=== PATIENT | male | born 1995 | race Caucasian/White ===

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

== ENCOUNTER 2019-01-25 12:52 | Emergency (ER) | payer OTHER ==
[2019-01-25 13:01] VITALS: BP 128/72
--- NOTE | 2019-01-25 13:09 | UC ---
Ear Complaint HPI - HPI Summary HPI Summary: Patient is a 23 year old gentleman , who presents today to the urgent care with left ear pain for past 3 days , injured on Saturday. He he reports that he was snorkeling in [place] and also was diving. He was around 25-30 feet level underwater. He has done this previously as wel without any problems. When he came out he heard a pop with blood mixed with water noted on his hands. He reports slightly muffled hearing. there is associated left ear discharge that he notices. Denies any fever, chills, cough chest pain or shortness of breath . Denies any abdominal pain , nausea or vomiting , diarrhea or constipation. - History of Current Complaint Chief Complaint: UCEar Stated Complaint: LEFT EAR PAIN Time Seen by Provider: 01/25/19 13:07 Hx Obtained From: Patient Pain Intensity: 4 - Allergies/Home Medications Allergies/Adverse Reactions: Allergies Allergy/AdvReac Type Severity Reaction Status Date / Time shell fish Allergy Shortness Uncoded 01/25/19 13:02 of Breath PMH/Surg Hx/FS Hx/Imm Hx - Additional Past Medical History Additional PMH: asthma, has not used inhaler for many years Previously Healthy: Yes - Surgical History Surgical History: Yes Surgery Procedure, Year, and Place: tubes in ears/T&A - Family History Known Family History: Positive: Hypertension, Diabetes, Other - HLD Negative: Cardiac Disease - Social History Alcohol Use: None Substance Use Type: None Smoking Status (MU): Former Smoker Type: Smokeless Tobacco Amount Used/How Often: 1 can per day Length of Time of Smoking/Using Tobacco: started at age 13 Have You Smoked in the Last Year: Yes When Did the Patient Quit Smoking/Using Tobacco: quit smoking cigg at age 18 - Immunization History Vaccination Up to Date: Yes Review of Systems All Other Systems Reviewed And Are Negative: Yes Constitutional: Positive: Negative Skin: Positive: Negative Eyes: Positive: Negative ENT: Positive: Ear Ache, Other - left-sided ear discharge, decreased hearing on left side Respiratory: Positive: Negative Cardiovascular: Positive: Negative Gastrointestinal: Positive: Negative Genitourinary: Positive: Negative Motor: Positive: Negative Neurovascular: Positive: Negative Musculoskeletal: Positive: Negative Neurological: Positive: Negative Psychological: Positive: Negative Is Patient Immunocompromised?: No Physical Exam - Summary Physical Exam Summary: Physical Exam: Const: Appears well. No signs of apparent distress present. Alert and oriented x 3. Musculo: Walks with a normal gait. Head/Face: Atraumatic, normocephalic on inspection. Eyes: EOMI and PERRLA in both eyes. Conjunctivae clear. No discharge noted ENT: Hearing normal, TM normal appearingon right side. There is a small defect at 9 o'clock positio noted on the tympanic membrane on the left side. There is slight amount of discharge noted. no pharyngeal erythema or exudates. No lymphadenopathy Respiratory: Respirations are unlabored. Lungs clear to auscultation bilaterally, no wheezing , rhonchi or rales noted . CVS: Regular rate and Rhythm, S1S2 normal , no murmurs identified. Extremities: Peripheral circulation is grossly normal. Pulses 2+ Abdomen : Soft non tender , nondistended , Bowel sounds present . No guarding , rebound tenderness or rigidity noted. Skin: No lesions or rash located on the upper extremities or on the lower extremities. Neuro: Cranial nerves II to XII intact, motor and sensory intact. DTR Intact bilaterally. Mood is normal. Affect is normal. Triage Information Reviewed: Yes Vital Signs: Initial Vital Signs Temp 98.5 F 01/25/19 12:53 Pulse 87 01/25/19 12:53 Resp 16 01/25/19 12:53 BP 128/72 01/25/19 12:53 Pulse Ox 100 01/25/19 12:53 Vital Signs Reviewed: Yes Ear Complaint Course/Dx - Course Course Of Treatment: During the visit today, we discussed the findings and further plan to cover with antibiotics and follow up with ENT for definitive management. I will prescribe the medication to the pharmacy . Patient expressed understanding . - Differential Dx/Diagnosis Provider Diagnosis: Barotrauma due to diving, Ruptured tympanic membrane, Otitis media Discharge - Sign-Out/Discharge Documenting (check all that apply): Patient Departure All imaging exams completed and their final reports reviewed: No Studies - Discharge Plan Condition: Stable Disposition: HOME Prescriptions: Ofloxacin 0.3% (Ear Drop)* [Floxin 0.3% OTIC.BERTO (Ear Drop)] 5 drop LEFT EAR BID 5 Days #1 btl Sulfamethox/Trimethoprim DS* [Bactrim DS 800/160 TAB*] 1 tab PO BID 10 Days #20 tab Patient Education Materials: Ruptured Eardrum (ED), Ear Infection (ED), Barotrauma (ED) Referrals: Philip Benitez MD [Medical Doctor] - 3 Days Gail Beck MD [Primary Care Provider] - Additional Instructions: Please start taking the medication as prescribed to the pharmacy . Follow up with ENT in 2 to 3 days Return to Urgent care / ER if symptoms get worse. - Billing Disposition and Condition Condition: STABLE Disposition: Home
== END 2019-01-25 13:29 | disposition home or self-care (01) ==
LOC: UCEAST 12:52
DX: T70.0XXA Otitic barotrauma, initial encounter (principal); H66.92 Otitis media, unspecified, left ear; H72.92 Unspecified perforation of tympanic membrane, left ear; Y93.15 Activity, underwater diving and snorkeling; F17.290 Nicotine dependence, other tobacco product, uncomplicated; Z91.013 Allergy to seafood
CPT/HCPCS: 99212; G0463

== ENCOUNTER 2019-07-01 18:14 | Emergency (ER) | payer OTHER ==
[2019-07-01 18:25] VITALS: BP 118/78
--- NOTE | 2019-07-01 19:01 | UC ---
Back Pain HPI - HPI Summary HPI Summary: 23-year-old male comes in with chief complaint of low back pain. While patient was lifting yesterday at the [employer] on June 30, 2019 had sudden onset of low back pain. He also became lightheaded and was transported to [facility] emergency department where he had lab work and imaging. He was sent home with lidocaine patches ibuprofen and hydrocodone. Pains in the mid lower back. Does radiate up some and down some towards the tailbone. No radiation down into the legs no weakness numb numbness. No plan of any loss of control of urine or bowels. Pain is worse with movement. - History of Current Complaint Chief Complaint: UCBackPain Stated Complaint: BACK INJURY Time Seen by Provider: 07/01/19 18:25 Pain Intensity: 4 - Allergies/Home Medications Allergies/Adverse Reactions: Allergies Allergy/AdvReac Type Severity Reaction Status Date / Time shell fish Allergy Shortness Uncoded 07/01/19 18:25 of Breath Home Medications: Home Medications HYDROcodone/ACETAMIN 5-325 MG* [[place] 5-325 TAB*] 1 mg PO Q6H PRN 07/01/19 [ History Confirmed 07/01/19] Lidocaine PATCH 5%* [Lidoderm 5% Patch*] 1 patch TOPICAL DAILY 07/01/19 [ History Confirmed 07/01/19] PMH/Surg Hx/FS Hx/Imm Hx Previously Healthy: Yes - Surgical History Surgical History: Yes Surgery Procedure, Year, and Place: tubes in ears/T&A - Family History Known Family History: Positive: Hypertension, Diabetes, Other - HLD Negative: Cardiac Disease - Social History Alcohol Use: None Substance Use Type: None Smoking Status (MU): Former Smoker Type: Smokeless Tobacco Amount Used/How Often: 1 can per day Length of Time of Smoking/Using Tobacco: started at age 13 Have You Smoked in the Last Year: Yes When Did the Patient Quit Smoking/Using Tobacco: quit smoking cigg at age 18 - Immunization History Vaccination Up to Date: Yes Review of Systems All Other Systems Reviewed And Are Negative: Yes Constitutional: Positive: Negative Skin: Positive: Negative Eyes: Positive: Negative ENT: Positive: Negative Respiratory: Positive: Negative Cardiovascular: Positive: Negative Gastrointestinal: Positive: Negative Genitourinary: Positive: Negative Motor: Positive: Other - SEE HPI Neurovascular: Positive: Negative Musculoskeletal: Positive: Other: - SEE HPI Neurological: Positive: Negative Psychological: Positive: Negative Is Patient Immunocompromised?: No Physical Exam Triage Information Reviewed: Yes Appearance: Well-Appearing, Well-Nourished, Pain Distress - MILD WITH ROM Vital Signs: Initial Vital Signs Temp 98.7 F 07/01/19 18:21 Pulse 66 07/01/19 18:21 Resp 18 07/01/19 18:21 BP 118/78 07/01/19 18:21 Pulse Ox 100 07/01/19 18:21 Vital Signs Reviewed: Yes Eye Exam: Normal Eyes: Positive: Conjunctiva Clear Neck: Positive: Supple Respiratory: Positive: No respiratory distress Musculoskeletal: Positive: Other: - Tender to palpation mid low back. Legs have full range of motion and full strength with normal sensation. He does have some increase in low back pain with knee extension and hip flexion on the right. Neurological: Positive: Alert Psychological: Positive: Age Appropriate Behavior Skin Exam: Normal Back Pain Course/Dx - Course Course Of Treatment: Patient will continue with the ibuprofen lidocaine patch and hydrocodone as needed. He will follow-up with either occupational medicine or sports medicine. Reevaluate sooner if worse or any questions or concerns. - Differential Dx/Diagnosis Provider Diagnosis: Low back pain Discharge ED - Sign-Out/Discharge Documenting (check all that apply): Patient Departure All imaging exams completed and their final reports reviewed: No Studies - Discharge Plan Condition: Stable Disposition: HOME Patient Education Materials: Acute Low Back Pain (ED) Referrals: Gail Beck MD [Primary Care Provider] - Yinka Arana MD [Medical Doctor] - [facility] [Provider Group] Additional Instructions: FOLLOW UP WITH DR ARANA, OCCUPATIONAL MEDICINE, OR SPORTS MEDICINE. GET RECHECKED SOONER IF YOUR CONDITION WORSENS; PAIN, WEAKNESS, NUMBNESS, DIFFICULTY CONTROLLING BOWEL OR BLADDER OR ANY QUESTIONS OR CONCERNS. - Billing Disposition and Condition Condition: STABLE Disposition: Home
== END 2019-07-01 19:10 | disposition home or self-care (01) ==
LOC: UCEAST 18:14
DX: M54.5 Low back pain (principal); Z87.891 Personal history of nicotine dependence
CPT/HCPCS: 99211; G0463